=== PATIENT | female | born 1995 | race Caucasian/White ===

== ENCOUNTER 2020-10-27 17:44 | Emergency (ER) | payer OTHER ==
[~2020-10-27] VITALS: Ht 167.6 cm; Wt 65.8 kg
--- NOTE | 2020-10-27 17:52 | NUR ---
pt ambulatory to er bed 03 c/o midsternal chest pain that started this morning. pt states that she got worried and anxious because its not going away. pt denies any history or drug use. stable vitals, nsr on the tele. placed on monitor. awaiting md fish.
--- NOTE | 2020-10-27 18:08 | NUR ---
janey peralta at bedside for eval.
--- NOTE | 2020-10-27 18:15 | NUR ---
laboratory worker at bedside for blood draw.
[2020-10-27 18:26] LABS: BASOPHILS # (AUTO) 0.1 /CMM (0.0-0.2); BASOPHILS % (AUTO) 0.8 % (0.0-2.0); EOSINOPHILS % (AUTO) 0.7 % (0.0-6.0); HEMATOCRIT 43 % (33-45); HEMOGLOBIN 14.6 g/dL (11.5-14.8); LYMPHOCYTES # (AUTO) 2.3 /CMM (0.8-4.8); LYMPHOCYTES % (AUTO) 32.3 % (20.0-44.0); MEAN CORPUSCULAR HGB CONC 34 g/dl (31.0-36.0); MEAN CORPUSCULAR VOLUME 80 fL (82-100); MONOCYTES # (AUTO) 0.6 /CMM (0.1-1.30); NEUTROPHILS # (AUTO) 4.2 /CMM (1.8-8.9); NEUTROPHILS % (AUTO) 58.2 % (43.0-81.0); PLATELET COUNT (AUTO) 245 /CMM (150-450); RED BLOOD CELL COUNT(AUTO) 5.42 MIL/uL (4.0-5.2); WHITE BLOOD COUNT (AUTO) 7.2 K/uL (4.3-11.0)
[2020-10-27] MEDS ORDERED: LIDOCAINE VISCOUS 2% UD 15 ML UDC MM ONE (18:30)
[2020-10-27] MEDS ORDERED: MAG HYDROX/AL HYDROX/SIMETH 30 ML UDC PO ONE (18:30)
[2020-10-27 18:40] LABS: CREATININE 0.9 mg/dL (0.6-1.3); POTASSIUM 3.3 mmol/L (3.5-5.1)
--- NOTE | 2020-10-27 18:42 | NUR ---
radiology at bedside for chest xray.
[2020-10-27] MEDS ORDERED: LIDOCAINE VISCOUS 2% UD 15 ML UDC ONE (18:43)
[2020-10-27] MEDS ORDERED: MAG HYDROX/AL HYDROX/SIMETH 30 ML UDC ONE (18:43)
[2020-10-27 18:45] LABS: ALBUMIN 4.3 g/dL (3.4-5.0); BILIRUBIN,DIRECT 0.1 mg/dL (0.0-0.2); BILIRUBIN,TOTAL 0.4 mg/dL (0.2-1.0); TOTAL PROTEIN, SERUM 8.1 g/dL (6.4-8.2)
--- NOTE | 2020-10-27 19:06 | NUR ---
REC'D REPORT FROM LEO STALLWORTH FOR JERMAINE
--- NOTE | 2020-10-27 19:14 | NUR ---
report given to david oquendo for lib[facility].
[2020-10-27] MEDS ORDERED: IBUP-1955 PO (19:19)
--- NOTE | 2020-10-27 19:22 | NUR ---
Patient discharged to home in stable condition. Written and verbal after care instructions given. Patient verbalizes understanding of instruction. pT ambulatory with a steady gait.
[2020-10-27 19:27] VITALS: BP 114/88
== END 2020-10-27 19:22 | disposition home or self-care (01) ==
LOC: ER 17:55
DX: F41.9 Anxiety disorder, unspecified (principal); R07.89 Other chest pain; Z79.899 Other long term (current) drug therapy
CPT/HCPCS: 36415; 71045-TC; 80048-TC; 80076-TC; 83690-TC; 84703-TC; 85025-TC